=== PATIENT | female | born 1975 | race Caucasian/White ===

== ENCOUNTER 2018-06-19 17:33 | Emergency (ER) | payer MEDICAID, OTHER ==
[~2018-06-19] VITALS: Ht 167.6 cm; Wt 109.0 kg
[2018-06-19] MEDS ORDERED: ONDANSETRON ODT 4 MG ONE (18:11)
[2018-06-19] MEDS ORDERED: HYDROmorphone 2 MG/ML, 1ML ONE (18:12)
[2018-06-19] MEDS ORDERED: KETOROLAC 30 MG/1 ML ONE (18:12)
[2018-06-19] MEDS ORDERED: KETOROLAC 30 MG/1 ML IM ONE (18:30)
[2018-06-19] MEDS ORDERED: HYDROmorphone 1 MG/ML, 1ML IM ONE (18:30)
[2018-06-19] MEDS ORDERED: ONDANSETRON ODT 4 MG PO ONE (18:30)
[2018-06-19 19:27] VITALS: BP 167/108
== END 2018-06-19 19:52 | disposition home or self-care (01) ==
LOC: ED 18:44
DX: M54.2 Cervicalgia (principal); M54.6 Pain in thoracic spine; I10 Essential (primary) hypertension; M25.511 Pain in right shoulder
CPT/HCPCS: 72125; 96372; 99284; J1170; J1885; Q0162